=== PATIENT | female | born 1965 | race Caucasian/White ===

== ENCOUNTER 2016-09-10 10:09 | Emergency (ER) | payer MEDICAID ==
[~2016-09-10] VITALS: Ht 154.9 cm; Wt 47.7 kg
[~2016-09-10 10:09] MED LIST: ADVAIR DISK2 IN; AMBIEN10 MG OR; AMOXICILLIN500 MG OR; ATIVAN0.5 MG OR; ATIVAN0.5 MG PO; ATIVAN1 M1 OR; ATIVAN1 M1 PO; ATIVAN1 MG PO; AUGMENTIN875 MG OR; BENTYL10 MG OR; BUSPAR15 MG PO; CEPHALEXIN500 MG PO; COMBIVENT IN; CYCLOBENZAPR10 MG PO; DEPAKOTE250 MG OR; DEPAKOTE500 MG OR; DEXAMETHASON OR; DIAZEPAM5 M1 PO; DOMEBORO EX; FLEXERIL10 MG PO; FLEXERIL5 MG PO; FLOXIN OTIC OT; GABAPENTIN100 MG PO; GEODON40 MG PO; GEODON80 MG PO; HYDROXYZ HCL50 MG OR; HYDROXYZ PAM100 MG OR; HYDROXYZINE OR; IBUPROFEN800 MG PO; KLONOPIN WAF0.5 MG OR; LITHIUM CARB300 MG OR; LITHIUM CARB600 MG OR; LORTAB 5 OR; MECLIZINE25 MG PO; METHADONE5 M1; METHADONE5 M1 PO; MOTRIN800 MG OR; MOTRIN800 MG/TAB PO; NEBULIZER; NEURONTIN100 MG; NEURONTIN300 MG OR; NORCO1 TA1 PO; PERCOCET 5/325M1 TAB OR; PRAVASTATIN20 MG PO; PROAIR HFA IN; PROMETHAZINE12.5 MG OR; PROMETHAZINE25 MG OR; PROMETRIUM200 MG OR; PROVENTIL HFA IN; REMERON15 MG OR; REQUIP0.5 MG OR; RIBAVIRIN400 MG OR; ROBITUSSIN AC10 ML PO; SYNTHROID OR; SYNTHROID50 MCG OR; TEGRETOL XR200 MG OR; TEGRETOL200 MG PO; TRAMADOL HCL50 MG OR; TRAMADOL HCL50 MG PO; TRILEPTAL300 M1 PO; TRUETRACK SC; TUBERSOL5 MG/0.1 M ID; TYLENOL500 MG OR; ULTRACET OR; ULTRAM50 M1; ULTRAM50 M1 PO; ULTRAM50 MG OR; VESICARE10 MG OR; VESICARE10 MG PO; VESICARE5 MG OR; VISTARIL50 MG PO; ZOFRAN4 MG/TAB PO; ZOLPIDEM5 M1 PO; ZYPREXA20 MG OR; ZYPREXA7.5 MG OR; [UNRECOGNIZED DRUG - SUPPLY] SC
[2016-09-10] MEDS ORDERED: TRAMADOL HCL50 MG PO (10:31)
[2016-09-10] MEDS ORDERED: LIORESAL10 MG/TA1 PO (10:32)
[2016-09-10] MEDS ORDERED: VESICARE10 MG PO (10:34)
[2016-09-10] MEDS ORDERED: LORAZEPAM0.5 MG PO (10:35)
[2016-09-10] MEDS ORDERED: LOVASTATIN20 M1 PO (10:35)
[2016-09-10] MEDS ORDERED: HYDROXYZ HCL25 MG PO (10:36)
[2016-09-10] MEDS ORDERED: MIRTAZAPINE30 MG PO (10:37)
[2016-09-10] MEDS ORDERED: LYRICA75 MG PO (10:38)
[2016-09-10 11:45] VITALS: BP 135/87
== END 2016-09-10 11:45 | disposition home or self-care (01) | DRG 563 ==
LOC: ED 10:09
DX: S93.401A Sprain of unspecified ligament of right ankle, initial encounter (principal); W18.43XA Slipping, tripping and stumbling without falling due to stepping from one level to another, initial encounter; Y93.01 Activity, walking, marching and hiking; Y92.414 Local residential or business street as the place of occurrence of the external cause

== ENCOUNTER 2017-03-12 04:24 | Emergency (ER) | payer MEDICAID ==
[~2017-03-12] VITALS: Ht 154.9 cm; Wt 47.7 kg
[~2017-03-12 04:24] MED LIST changes: +HYDROXYZ HCL25 MG PO; +LIORESAL10 MG/TA1 PO; +LORAZEPAM0.5 MG PO; +LOVASTATIN20 M1 PO; +LYRICA75 MG PO; +MIRTAZAPINE30 MG PO
[2017-03-12 05:32] LABS: ALBUMIN 4.5 g/dL (3.2-5.0); ALKALINE PHOSPHATASE 94 u/l (38-126); AMYLASE 66 u/l (30-110); ANION GAP 16 (6-22 (CALC)); BILIRUBIN, TOTAL 0.7 mg/dL (0.0-1.4); BUN 10 mg/dL (7-17); BUN/CREATININE RATIO 18 (12-20 (CALC)); CALCIUM 9.6 mg/dL (8.4-10.2); CARBON DIOXIDE 25 mmol/l (22-30); CHLORIDE 112 mmol/l (95-108); CREATININE 0.5 mg/dL (0.5-1.0); GFR > 60 ML/MIN (>=60 (CALC)); GFR FOR AFR.AMER. > 60 ML/MIN (>=60 (CALC)); GLUCOSE 110 mg/dL (65-105); LIPASE 40 u/l (23-300); POTASSIUM 3.7 mmol/l (3.5-5.1); SGOT/AST 25 u/l (14-36); SGPT/ALT 27 u/l (9-52); SODIUM 149 mmol/l (137-146); TOTAL PROTEIN 7.3 g/dL (6.3-8.2)
[2017-03-12 05:38] LABS: HEMATOCRIT 38.3 % (37.0-47.0); HEMOGLOBIN 13.1 g/dl (12.0-16.0); IMMATURE GRANULOCYTES 1.3 % (0.0-1.0); MEAN CORPUSCULAR HGB 33.5 pG CALC (26.0-32.0); MEAN CORPUSCULAR HGB CONC 34.2 g/L CALC (32.0-36.0); NEUT# 8.76 thou/uL (2.00-7.15); RED BLOOD COUNT 3.91 mill/uL (4.20-5.60); RED CELL DISTRI WIDTH 13.1 % (11.5-15.5)
[2017-03-12 06:10] VITALS: BP 140/88
== END 2017-03-12 06:10 | disposition left against medical advice (07) | DRG 556 ==
LOC: ED 04:24
PROVIDERS: Emergency Medicine
DX: M79.604 Pain in right leg (principal); R11.2 Nausea with vomiting, unspecified; Z91.19 Patient's noncompliance with other medical treatment and regimen; W10.9XXA Fall (on) (from) unspecified stairs and steps, initial encounter; Y92.009 Unspecified place in unspecified non-institutional (private) residence as the place of occurrence of the external cause

== ENCOUNTER 2017-03-12 06:44 | Emergency (ER) | payer MEDICAID | END 2017-03-12 07:00 | disposition left against medical advice (07) | DRG 951 | LOC: ED 06:44 → LWOBS 07:00 | DX: Z91.19 Patient's noncompliance with other medical treatment and regimen (principal) ==

== ENCOUNTER 2017-03-23 00:53 | Inpatient (IN) | payer MEDICAID ==
[2017-03-23] VITALS (10 sets, daily range): BP systolic 111–156; BP diastolic 60–87
[~2017-03-23] VITALS: Ht 154.9 cm; Wt 44.9 kg
[2017-03-23 02:54] LABS: HEMATOCRIT 36.4 % (37.0-47.0); HEMOGLOBIN 12.3 g/dl (12.0-16.0); IMMATURE GRANULOCYTES 0.6 % (0.0-1.0); MEAN CELL VOLUME 97.6 fL CALC (80.0-100.0); MEAN CORPUSCULAR HGB CONC 33.8 g/L CALC (32.0-36.0); NEUT# 12.96 thou/uL (2.00-7.15); RED BLOOD COUNT 3.73 mill/uL (4.20-5.60)
[2017-03-23 03:01] LABS: ALBUMIN 4.6 g/dL (3.2-5.0); ALKALINE PHOSPHATASE 136 u/l (38-126); ANION GAP 21 (6-22 (CALC)); BILIRUBIN, TOTAL 0.7 mg/dL (0.0-1.4); BUN 14 mg/dL (7-17); BUN/CREATININE RATIO 23 (12-20 (CALC)); CALCIUM 10.1 mg/dL (8.4-10.2); CARBON DIOXIDE 23 mmol/l (22-30); CHLORIDE 107 mmol/l (95-108); CREATININE 0.6 mg/dL (0.5-1.0); GFR > 60 ML/MIN (>=60 (CALC)); GFR FOR AFR.AMER. > 60 ML/MIN (>=60 (CALC)); GLUCOSE 218 mg/dL (65-105); POTASSIUM 2.9 mmol/l (3.5-5.1); SGOT/AST 28 u/l (14-36); SGPT/ALT 29 u/l (9-52); SODIUM 148 mmol/l (137-146); TOTAL PROTEIN 7.3 g/dL (6.3-8.2)
[2017-03-23 03:03] LABS: ETHYL ALCOHOL < 10 mg/dl (0-30)
[2017-03-23 03:16] LABS: URINE BLOOD DIPSTICK TRACE-LYSED (NEGATIVE); URINE CLARITY SLIGHT CLOUDY; URINE COLOR YELLOW; URINE GLUCOSE - DIPSTICK 500 mg/dL (NEGATIVE); URINE KETONE TRACE mg/dL (NEGATIVE); URINE LEUK ESTERASE NEGATIVE (NEGATIVE); URINE NITRITE - DIPSTICK NEGATIVE (Negative); URINE PROTEIN - DIPSTICK 30 mg/dL (NEG-TRACE)
[2017-03-23 03:17] LABS: URINE BILIRUBIN - DIPSTICK SMALL (NEGATIVE)
[2017-03-23 03:21] LABS: BARBITURATES NEGATIVE (NEGATIVE); COCAINE NEGATIVE (NEGATIVE); METHADONE NEGATIVE (NEGATIVE); OXCYCODONE NEGATIVE (NEGATIVE); TETRAHYDROCANNABIONOL POSITIVE (NEGATIVE); TRICYLIC ANTIDEPRESSANTS NEGATIVE (NEGATIVE)
[2017-03-23 03:32] LABS: URINE BACTERIA FEW hpf; URINE SQUAMOUS EPITHELIAL CELL MODERATE EPI/hpf (0-FEW)
[2017-03-23 06:33] LABS: HEMATOCRIT 32.9 % (37.0-47.0); HEMOGLOBIN 11.2 g/dl (12.0-16.0); IMMATURE GRANULOCYTES 0.6 % (0.0-1.0); MEAN CELL VOLUME 97.1 fL CALC (80.0-100.0); NEUT# 11.59 thou/uL (2.00-7.15); RED BLOOD COUNT 3.39 mill/uL (4.20-5.60); RED CELL DISTRI WIDTH 12.9 % (11.5-15.5)
[2017-03-23 06:46] LABS: ALBUMIN 3.9 g/dL (3.2-5.0); ALKALINE PHOSPHATASE 142 u/l (38-126); ANION GAP 15 (6-22 (CALC)); BILIRUBIN, TOTAL 0.6 mg/dL (0.0-1.4); BUN 13 mg/dL (7-17); BUN/CREATININE RATIO 24 (12-20 (CALC)); CALCIUM 9.2 mg/dL (8.4-10.2); CARBON DIOXIDE 24 mmol/l (22-30); CHLORIDE 108 mmol/l (95-108); CREATININE 0.5 mg/dL (0.5-1.0); GFR > 60 ML/MIN (>=60 (CALC)); GFR FOR AFR.AMER. > 60 ML/MIN (>=60 (CALC)); GLUCOSE 113 mg/dL (65-105); POTASSIUM 2.9 mmol/l (3.5-5.1); SGOT/AST 29 u/l (14-36); SGPT/ALT 34 u/l (9-52); SODIUM 144 mmol/l (137-146); TOTAL PROTEIN 6.4 g/dL (6.3-8.2)
[2017-03-23] MEDS ORDERED: DOXYCYC MONO100 M1 PO (08:34)
[2017-03-24] VITALS: BP 155/81
[2017-03-24 00:50] LABS: ANION GAP 12 (6-22 (CALC)); BUN 8 mg/dL (7-17); BUN/CREATININE RATIO 15 (12-20 (CALC)); CALCIUM 8.6 mg/dL (8.4-10.2); CARBON DIOXIDE 24 mmol/l (22-30); CHLORIDE 112 mmol/l (95-108); CREATININE 0.5 mg/dL (0.5-1.0); GFR > 60 ML/MIN (>=60 (CALC)); GFR FOR AFR.AMER. > 60 ML/MIN (>=60 (CALC)); GLUCOSE 83 mg/dL (65-105); POTASSIUM 2.8 mmol/l (3.5-5.1); SODIUM 145 mmol/l (137-146)
[2017-03-24 02:00] VITALS: BP 144/77
[2017-03-24 04:00] VITALS: BP 153/90
[2017-03-24 05:57] LABS: MEAN CORPUSCULAR HGB 33.3 pG CALC (26.0-32.0); MEAN CORPUSCULAR HGB CONC 34.4 g/L CALC (32.0-36.0); RED BLOOD COUNT 3.3 mill/uL (4.20-5.60); RED CELL DISTRI WIDTH 12.6 % (11.5-15.5)
[2017-03-24 06:00] VITALS: BP 157/77
[2017-03-24 06:07] LABS: ANION GAP 12 (6-22 (CALC)); BUN 7 mg/dL (7-17); BUN/CREATININE RATIO 13 (12-20 (CALC)); CALCIUM 8.8 mg/dL (8.4-10.2); CARBON DIOXIDE 23 mmol/l (22-30); CHLORIDE 113 mmol/l (95-108); CREATININE 0.5 mg/dL (0.5-1.0); GFR > 60 ML/MIN (>=60 (CALC)); GFR FOR AFR.AMER. > 60 ML/MIN (>=60 (CALC)); GLUCOSE 92 mg/dL (65-105); SODIUM 145 mmol/l (137-146)
[2017-03-24 07:00] VITALS: BP 157/77
[2017-03-25] MEDS ORDERED: PERCOCET 5/325M1 TAB PO (09:41)
[2017-03-25] MEDS ORDERED: GEODON40 MG PO (09:42)
[2017-03-25] MEDS ORDERED: ALBUTEROL SUL0.083 % IN (09:43)
[2017-03-25] MEDS ORDERED: CLONIDINE0.1 MG PO (11:20)
== END 2017-03-24 14:50 | disposition home or self-care (01) | DRG 72 ==
LOC: ED 00:53 → ED-I 07:29 → ED 07:37 → ICU 07:38
PROVIDERS: Emergency Medicine; ADMIT Internal Medicine; ATTEND Internal Medicine
DX: G93.40 Encephalopathy, unspecified (principal); E87.6 Hypokalemia; F31.9 Bipolar disorder, unspecified; G40.909 Epilepsy, unspecified, not intractable, without status epilepticus; F41.9 Anxiety disorder, unspecified; F12.90 Cannabis use, unspecified, uncomplicated; F17.210 Nicotine dependence, cigarettes, uncomplicated; M54.5 Low back pain

== ENCOUNTER 2017-03-25 09:25 | Emergency (ER) | payer MEDICAID ==
[~2017-03-25] VITALS: Ht 154.9 cm; Wt 42.0 kg
[~2017-03-25 09:25] MED LIST changes: +BACLOFEN20 MG PO; +DOXYCYC MONO100 M1 PO; -LIORESAL10 MG/TA1 PO
[2017-03-25] MEDS ORDERED: PERCOCET 5/325M1 TAB PO (09:41)
[2017-03-25] MEDS ORDERED: GEODON40 MG PO (09:42)
[2017-03-25] MEDS ORDERED: ALBUTEROL SUL0.083 % IN (09:43)
[2017-03-25 10:23] LABS: HEMATOCRIT 34.6 % (37.0-47.0); HEMOGLOBIN 11.8 g/dl (12.0-16.0); IMMATURE GRANULOCYTES 0.5 % (0.0-1.0); MEAN CELL VOLUME 95.6 fL CALC (80.0-100.0); MEAN CORPUSCULAR HGB 32.6 pG CALC (26.0-32.0); MEAN CORPUSCULAR HGB CONC 34.1 g/L CALC (32.0-36.0); NEUT# 4.22 thou/uL (2.00-7.15); RED BLOOD COUNT 3.62 mill/uL (4.20-5.60); RED CELL DISTRI WIDTH 12.4 % (11.5-15.5)
[2017-03-25 10:37] LABS: ALBUMIN 3.7 g/dL (3.2-5.0); ALKALINE PHOSPHATASE 133 u/l (38-126); ANION GAP 13 (6-22 (CALC)); BILIRUBIN, TOTAL 0.6 mg/dL (0.0-1.4); BUN 6 mg/dL (7-17); BUN/CREATININE RATIO 10 (12-20 (CALC)); CALCIUM 9.4 mg/dL (8.4-10.2); CARBON DIOXIDE 27 mmol/l (22-30); CHLORIDE 109 mmol/l (95-108); CREATININE 0.6 mg/dL (0.5-1.0); GFR > 60 ML/MIN (>=60 (CALC)); GFR FOR AFR.AMER. > 60 ML/MIN (>=60 (CALC)); GLUCOSE 104 mg/dL (65-105); POTASSIUM 3.2 mmol/l (3.5-5.1); SGOT/AST 36 u/l (14-36); SGPT/ALT 35 u/l (9-52); SODIUM 146 mmol/l (137-146); TOTAL PROTEIN 6.5 g/dL (6.3-8.2)
[2017-03-25 11:20] LABS: URINE BILIRUBIN - DIPSTICK NEGATIVE (NEGATIVE); URINE BLOOD DIPSTICK NEGATIVE (NEGATIVE); URINE CLARITY CLEAR; URINE COLOR YELLOW; URINE GLUCOSE - DIPSTICK NEGATIVE (NEGATIVE); URINE KETONE NEGATIVE (NEGATIVE); URINE LEUK ESTERASE NEGATIVE (NEGATIVE); URINE NITRITE - DIPSTICK NEGATIVE (Negative); URINE PH 5.5 (4.5-8.0); URINE PROTEIN - DIPSTICK NEGATIVE (NEG-TRACE); URINE UROBILINOGEN - DIPSTICK 0.2 E.U./dL (0.2)
[2017-03-25] MEDS ORDERED: CLONIDINE0.1 MG PO (11:20)
[2017-03-25 11:26] LABS: BARBITURATES NEGATIVE (NEGATIVE); COCAINE NEGATIVE (NEGATIVE); METHADONE NEGATIVE (NEGATIVE); OXCYCODONE NEGATIVE (NEGATIVE); TETRAHYDROCANNABIONOL POSITIVE (NEGATIVE); TRICYLIC ANTIDEPRESSANTS NEGATIVE (NEGATIVE)
[2017-03-25 11:55] VITALS: BP 143/78
== END 2017-03-25 11:55 | disposition home or self-care (01) | DRG 392 ==
LOC: ED 09:25
PROVIDERS: Emergency Medicine
DX: R10.32 Left lower quadrant pain (principal); Z76.5 Malingerer [conscious simulation]; G89.29 Other chronic pain; M54.5 Low back pain; F17.210 Nicotine dependence, cigarettes, uncomplicated

== ENCOUNTER 2017-03-31 07:15 | Emergency (ER) | payer MEDICAID ==
[~2017-03-31] VITALS: Ht 154.9 cm; Wt 43.0 kg
[~2017-03-31 07:15] MED LIST changes: +ALBUTEROL SUL0.083 % IN; +CLONIDINE0.1 MG PO; +PERCOCET 5/325M1 TAB PO
[2017-03-31 07:16] VITALS: BP 160/81
[2017-03-31] MEDS ORDERED: POT CHLORIDE20 ME3 PO (07:44)
[2017-03-31] MEDS ORDERED: MOTRIN400 MG PO (07:46)
[2017-03-31] MEDS ORDERED: MOTRIN400 MG/TAB PO (07:46)
[2017-03-31] MEDS ORDERED: VESICARE10 MG PO (07:48)
== END 2017-03-31 08:51 | disposition left against medical advice (07) | DRG 392 ==
LOC: ED 07:15
DX: R10.32 Left lower quadrant pain (principal); B19.20 Unspecified viral hepatitis C without hepatic coma; G89.29 Other chronic pain; M54.5 Low back pain; F31.9 Bipolar disorder, unspecified; F17.210 Nicotine dependence, cigarettes, uncomplicated; Z91.19 Patient's noncompliance with other medical treatment and regimen; Z76.5 Malingerer [conscious simulation]

== ENCOUNTER 2017-04-06 15:54 | Emergency (ER) | payer MEDICAID ==
[~2017-04-06] VITALS: Ht 154.9 cm; Wt 56.0 kg
[~2017-04-06 15:54] MED LIST changes: +MOTRIN400 MG PO; +MOTRIN400 MG/TAB PO; +POT CHLORIDE20 ME3 PO
[2017-04-06 16:49] LABS: HEMATOCRIT 41.3 % (37.0-47.0); HEMOGLOBIN 13.8 g/dl (12.0-16.0); IMMATURE GRANULOCYTES 0.5 % (0.0-1.0); MEAN CELL VOLUME 97.6 fL CALC (80.0-100.0); MEAN CORPUSCULAR HGB 32.6 pG CALC (26.0-32.0); MEAN CORPUSCULAR HGB CONC 33.4 g/L CALC (32.0-36.0); NEUT# 11.34 thou/uL (2.00-7.15); RED BLOOD COUNT 4.23 mill/uL (4.20-5.60); RED CELL DISTRI WIDTH 12.2 % (11.5-15.5)
[2017-04-06 16:57] LABS: ANION GAP 19 (6-22 (CALC)); BUN 15 mg/dL (7-17); BUN/CREATININE RATIO 18 (12-20 (CALC)); CALCIUM 10.5 mg/dL (8.4-10.2); CARBON DIOXIDE 22 mmol/l (22-30); CHLORIDE 109 mmol/l (95-108); CREATININE 0.8 mg/dL (0.5-1.0); GFR > 60 ML/MIN (>=60 (CALC)); GFR FOR AFR.AMER. > 60 ML/MIN (>=60 (CALC)); GLUCOSE 122 mg/dL (65-105); LIPASE 14 u/l (23-300); POTASSIUM 4.7 mmol/l (3.5-5.1); SODIUM 145 mmol/l (137-146)
[2017-04-06 20:11] VITALS: BP 146/77
== END 2017-04-06 20:11 | disposition home or self-care (01) | DRG 392 ==
LOC: ED 15:54
PROVIDERS: Family Medicine
DX: K59.00 Constipation, unspecified (principal); B19.20 Unspecified viral hepatitis C without hepatic coma; F31.9 Bipolar disorder, unspecified; E78.00 Pure hypercholesterolemia, unspecified; K58.9 Irritable bowel syndrome, unspecified; F17.210 Nicotine dependence, cigarettes, uncomplicated; R10.31 Right lower quadrant pain

== ENCOUNTER 2017-04-10 11:23 | Emergency (ER) | payer MEDICAID ==
[~2017-04-10] VITALS: Ht 154.9 cm; Wt 40.9 kg
[2017-04-10] MEDS ORDERED: COLACE100 MG PO (12:11)
[2017-04-10] MEDS ORDERED: MAGNESIUM296 ML/BTL PO (12:11)
[2017-04-10] MEDS ORDERED: MIRALAX3350 N1 PO (12:11)
[2017-04-10 13:00] VITALS: BP 120/65
== END 2017-04-10 13:10 | disposition home or self-care (01) | DRG 392 ==
LOC: ED 11:23
DX: K59.00 Constipation, unspecified (principal); B19.20 Unspecified viral hepatitis C without hepatic coma; F31.9 Bipolar disorder, unspecified; R11.2 Nausea with vomiting, unspecified; K58.9 Irritable bowel syndrome, unspecified; G89.29 Other chronic pain; M54.5 Low back pain; F17.210 Nicotine dependence, cigarettes, uncomplicated

== ENCOUNTER 2017-08-18 13:56 | Emergency (ER) | payer MEDICAID ==
[~2017-08-18] VITALS: Ht 154.9 cm; Wt 41.6 kg
[~2017-08-18 13:56] MED LIST changes: +COLACE100 MG PO; +MAGNESIUM296 ML/BTL PO; +MIRALAX3350 N1 PO
[2017-08-18 13:59] VITALS: BP 149/82
[2017-08-18 14:58] LABS: URINE BILIRUBIN - DIPSTICK NEGATIVE (NEGATIVE); URINE BLOOD DIPSTICK NEGATIVE (NEGATIVE); URINE CLARITY CLEAR; URINE COLOR YELLOW; URINE GLUCOSE - DIPSTICK NEGATIVE (NEGATIVE); URINE KETONE NEGATIVE (NEGATIVE); URINE LEUK ESTERASE NEGATIVE (NEGATIVE); URINE NITRITE - DIPSTICK NEGATIVE (Negative); URINE PH 6.5 (4.5-8.0); URINE PROTEIN - DIPSTICK NEGATIVE (NEG-TRACE); URINE SPECIFIC GRAVITY 1.015; URINE UROBILINOGEN - DIPSTICK 0.2 E.U./dL (0.2)
== END 2017-08-18 15:25 | disposition left against medical advice (07) | DRG 951 ==
LOC: ED 13:56 → LWOBS 15:25 → ED 15:25
PROVIDERS: Family Medicine
DX: Z91.19 Patient's noncompliance with other medical treatment and regimen (principal)

== ENCOUNTER 2017-09-20 17:56 | Emergency (ER) | payer MEDICARE, MEDICAID ==
[~2017-09-20] VITALS: Ht 154.9 cm; Wt 39.1 kg
[2017-09-20 18:53] VITALS: BP 150/70
[2017-09-20 19:00] LABS: URINE BILIRUBIN - DIPSTICK NEGATIVE (NEGATIVE); URINE BLOOD DIPSTICK TRACE-INTACT (NEGATIVE); URINE COLOR YELLOW; URINE GLUCOSE - DIPSTICK NEGATIVE (NEGATIVE); URINE KETONE 15 mg/dL (NEGATIVE); URINE LEUK ESTERASE NEGATIVE (NEGATIVE); URINE NITRITE - DIPSTICK NEGATIVE (Negative); URINE PH 5.5 (4.5-8.0); URINE PROTEIN - DIPSTICK NEGATIVE (NEG-TRACE); URINE SPECIFIC GRAVITY >=1.030; URINE UROBILINOGEN - DIPSTICK 0.2 E.U./dL (0.2)
[2017-09-20 19:01] LABS: URINE CLARITY CLEAR
== END 2017-09-20 18:54 | disposition left against medical advice (07) ==
LOC: ED 17:56
PROVIDERS: Emergency Medicine
DX: R10.2 Pelvic and perineal pain (principal); Z91.19 Patient's noncompliance with other medical treatment and regimen

== ENCOUNTER 2018-05-11 05:15 | Emergency (ER) | payer MEDICARE, MEDICAID ==
[~2018-05-11] VITALS: Ht 154.9 cm; Wt 41.8 kg
[~2018-05-11 05:15] MED LIST changes: +LYRICA100 MG PO
[2018-05-11 06:01] LABS: HEMATOCRIT 40.9 % (37.0-47.0); HEMOGLOBIN 14.3 g/dl (12.0-16.0); IMMATURE GRANULOCYTES 0.3 % (0.0-5.0); MEAN CORPUSCULAR HGB 33.1 pG CALC (26.0-32.0); NEUT# 4.42 thou/uL (2.00-7.15); RED BLOOD COUNT 4.32 mill/uL (4.20-5.60); RED CELL DISTRI WIDTH 12.3 % (11.5-15.5)
[2018-05-11 06:02] LABS: MEAN CELL VOLUME 94.7 fL CALC (80.0-100.0)
[2018-05-11 06:13] LABS: ALBUMIN 4.5 g/dL (3.2-5.0); ALKALINE PHOSPHATASE 139 u/l (38-126); AMYLASE 62 u/l (30-110); ANION GAP 13 (6-22 (CALC)); BILIRUBIN, TOTAL 0.7 mg/dL (0.0-1.4); BUN 14 mg/dL (7-17); BUN/CREATININE RATIO 19 (12-20 (CALC)); CARBON DIOXIDE 27 mmol/l (22-30); CHLORIDE 106 mmol/l (95-108); CREATININE 0.8 mg/dL (0.5-1.0); GFR > 60 ML/MIN (>=60 (CALC)); GFR FOR AFR.AMER. > 60 ML/MIN (>=60 (CALC)); LIPASE 128 u/l (23-300); POTASSIUM 4.1 mmol/l (3.5-5.1); SODIUM 142 mmol/l (137-146); TOTAL PROTEIN 7.4 g/dL (6.3-8.2)
[2018-05-11 06:14] LABS: SGOT/AST 201 u/l (14-36)
[2018-05-11] MEDS ORDERED: PHENERGAN25 MG/TAB PO (06:52)
[2018-05-11 07:21] VITALS: BP 131/78
== END 2018-05-11 07:44 | disposition home or self-care (01) ==
LOC: ED 05:15
PROVIDERS: Family Medicine
DX: K52.9 Noninfective gastroenteritis and colitis, unspecified (principal); F17.210 Nicotine dependence, cigarettes, uncomplicated; R10.13 Epigastric pain; R11.2 Nausea with vomiting, unspecified; F15.10 Other stimulant abuse, uncomplicated

== ENCOUNTER 2018-07-09 12:39 | Emergency (ER) | payer MEDICARE, MEDICAID ==
[~2018-07-09] VITALS: Ht 154.9 cm; Wt 46.3 kg
[~2018-07-09 12:39] MED LIST changes: +PHENERGAN25 MG/TAB PO
[2018-07-09 13:28] LABS: HEMATOCRIT 40.1 % (37.0-47.0); HEMOGLOBIN 13.5 g/dl (12.0-16.0); IMMATURE GRANULOCYTES 0.5 % (0.0-5.0); MEAN CELL VOLUME 98.3 fL CALC (80.0-100.0); MEAN CORPUSCULAR HGB 33.1 pG CALC (26.0-32.0); MEAN CORPUSCULAR HGB CONC 33.7 g/L CALC (32.0-36.0); NEUT# 3.85 thou/uL (2.00-7.15); RED BLOOD COUNT 4.08 mill/uL (4.20-5.60); RED CELL DISTRI WIDTH 12.4 % (11.5-15.5)
[2018-07-09 13:30] VITALS: BP 128/78
[2018-07-09 13:41] LABS: COCAINE NEGATIVE (NEGATIVE); METHADONE NEGATIVE (NEGATIVE); TETRAHYDROCANNABIONOL POSITIVE (NEGATIVE)
[2018-07-09 13:42] LABS: BARBITURATES NEGATIVE (NEGATIVE); OXCYCODONE NEGATIVE (NEGATIVE); TRICYLIC ANTIDEPRESSANTS NEGATIVE (NEGATIVE)
[2018-07-09 13:58] LABS: ALBUMIN 4.6 g/dL (3.2-5.0); ALKALINE PHOSPHATASE 98 u/l (38-126); ANION GAP 14 (6-22 (CALC)); BILIRUBIN, TOTAL 0.5 mg/dL (0.0-1.4); BUN 12 mg/dL (7-17); BUN/CREATININE RATIO 15 (12-20 (CALC)); CARBON DIOXIDE 27 mmol/l (22-30); CHLORIDE 104 mmol/l (95-108); CREATININE 0.8 mg/dL (0.5-1.0); GFR > 60 ML/MIN (>=60 (CALC)); GFR FOR AFR.AMER. > 60 ML/MIN (>=60 (CALC)); LIPASE 26 u/l (23-300); POTASSIUM 4.5 mmol/l (3.5-5.1); SGOT/AST 89 u/l (14-36); SODIUM 140 mmol/l (137-146); TOTAL PROTEIN 7.3 g/dL (6.3-8.2)
== END 2018-07-09 13:30 | disposition left against medical advice (07) ==
LOC: ED 12:39
PROVIDERS: Emergency Medicine
DX: R20.2 Paresthesia of skin (principal); Z91.19 Patient's noncompliance with other medical treatment and regimen; R07.9 Chest pain, unspecified; F17.200 Nicotine dependence, unspecified, uncomplicated; I10 Essential (primary) hypertension; H53.8 Other visual disturbances